=== PATIENT | male | born 1970 | race Caucasian/White ===

== ENCOUNTER → 2018-03-27 07:24 | Outpatient (CLI) | payer BC, SELFPAY ==
[2018-03-27 08:50] LABS: Anion Gap 9.4 mmol/L (3-11); BUN 17 mg/dL (7-18); CO2 27.6 mmol/L (21.0-32.0); CREATININE 0.87 mg/dL (0.70-1.30); Chloride 100 mmol/L (98-107); Cholesterol 176 mg/dL (50-200); Glucose 94 mg/dL (70-100); HDL Cholesterol 55 mg/dL (40-60); LDL CHOLESTEROL 94 mg/dL (<100); Sodium 137 mmol/L (136-145); Triglyceride 120 mg/dL (30-150)
== END ==
PROVIDERS: PCP Internal Medicine; Visit Provider Internal Medicine
DX: I10 Essential (primary) hypertension (principal); E78.00 Pure hypercholesterolemia, unspecified
CPT/HCPCS: 36415; 80048; 80061; 83721

== ENCOUNTER 2019-04-02 16:01 | Outpatient (REF) | payer BC, SELFPAY ==
[2019-04-02 16:52] LABS: Anion Gap 11.2 mmol/L (3-11); BUN 15 mg/dL (7-18); CO2 26.8 mmol/L (21.0-32.0); CREATININE 0.81 mg/dL (0.70-1.30); Calcium 9.5 mg/dL (8.5-10.1); Calculated LDL 105 mg/dL; Chloride 98 mmol/L (98-107); Cholesterol 175 mg/dL (50-200); Glucose 91 mg/dL (70-100); HDL Cholesterol 60 mg/dL (40-60); Potassium 3.9 mmol/L (3.5-5.1); Sodium 136 mmol/L (136-145); Triglyceride 50 mg/dL (30-150)
== END 2019-04-02 16:21 ==
LOC: LBN 16:01
PROVIDERS: PCP Internal Medicine; Visit Provider Internal Medicine
DX: I10 Essential (primary) hypertension (principal)
CPT/HCPCS: 80048; 80061; 83721

== ENCOUNTER 2020-05-06 05:29 | Outpatient (CLI) | payer BC, SELFPAY ==
[2020-05-06 09:26] LABS: Anion Gap 5.4 mmol/L (3-11); BUN 13 mg/dL (7-18); CO2 28.6 mmol/L (21.0-32.0); CREATININE 0.93 mg/dL (0.70-1.30); Calcium 9.1 mg/dL (8.5-10.1); Calculated LDL 107 mg/dL (<100); Chloride 101 mmol/L (98-107); Cholesterol 183 mg/dL (<200); Glucose 93 mg/dL (74-106); HDL Cholesterol 64 mg/dL (40-60); Potassium 4.5 mmol/L (3.5-5.1); Sodium 135 mmol/L (136-145); Triglyceride 63 mg/dL (<150)
== END 2020-05-06 05:49 ==
PROVIDERS: PCP Internal Medicine; Visit Provider Internal Medicine
DX: E78.00 Pure hypercholesterolemia, unspecified (principal); I10 Essential (primary) hypertension; N50.812 Left testicular pain
CPT/HCPCS: 36415; 80048; 80061

== ENCOUNTER 2021-11-30 05:40 | Outpatient (CLI) | payer BC, SELFPAY ==
[2021-11-30 16:49] LABS: Anion Gap 8.1 mmol/L (3-11); BUN 16 mg/dL (7-18); CO2 27.9 mmol/L (21.0-32.0); CREATININE 0.9 mg/dL (0.70-1.30); Calcium 9.6 mg/dL (8.5-10.1); Calculated LDL 118 mg/dL (<100); Chloride 99 mmol/L (98-107); Cholesterol 214 mg/dL (<200); Glucose 91 mg/dL (74-106); HDL Cholesterol 79 mg/dL (40-60); Potassium 3.9 mmol/L (3.5-5.1); Sodium 135 mmol/L (136-145); Triglyceride 87 mg/dL (<150)
== END 2021-11-30 05:41 | disposition home or self-care (01) ==
LOC: LBO 05:40
PROVIDERS: PCP Internal Medicine; Visit Provider Internal Medicine
DX: I10 Essential (primary) hypertension (principal)
CPT/HCPCS: 36415; 80048; 80061

== ENCOUNTER 2022-11-25 01:59 | Outpatient (CLI) | payer BC, SELFPAY ==
[2022-11-25 07:57] LABS: Anion Gap 9.5 mmol/L (3-11); BUN 15 mg/dL (7-18); CO2 28.5 mmol/L (21.0-32.0); CREATININE 0.9 mg/dL (0.70-1.30); Calcium 9.2 mg/dL (8.5-10.1); Calculated LDL 107 mg/dL (<100); Chloride 99 mmol/L (98-107); Cholesterol 192 mg/dL (<200); Glucose 108 mg/dL (74-106); HDL Cholesterol 76 mg/dL (40-60); Sodium 137 mmol/L (136-145); Triglyceride 47 mg/dL (<150)
== END 2022-11-25 02:00 | disposition home or self-care (01) ==
LOC: LBO 01:59
PROVIDERS: PCP Nurse Practitioner Adult Health; Visit Provider Nurse Practitioner Adult Health
DX: I10 Essential (primary) hypertension (principal); Z13.220 Encounter for screening for lipoid disorders
CPT/HCPCS: 36415; 80048; 80061

== ENCOUNTER 2023-06-12 01:02 | Outpatient (CLI) | payer BC, SELFPAY ==
[2023-06-12 07:48] LABS: Anion Gap 10.4 mmol/L (3-11); BUN 15 mg/dL (7-18); CO2 26.6 mmol/L (21.0-32.0); Calcium 9.7 mg/dL (8.5-10.1); Chloride 98 mmol/L (98-107); Estimated GFR 90.56 (mL/min/1.73m2); Glucose 122 mg/dL (74-106); Potassium 4.3 mmol/L (3.5-5.1); Sodium 135 mmol/L (136-145)
[2023-06-12 07:54] LABS: Hemoglobin A1C 5.5 % (<5.7)
== END 2023-06-12 01:03 | disposition home or self-care (01) ==
PROVIDERS: PCP Nurse Practitioner Adult Health; Visit Provider Nurse Practitioner Adult Health
DX: I10 Essential (primary) hypertension (principal); R73.01 Impaired fasting glucose
CPT/HCPCS: 36415; 80048; 83036

== ENCOUNTER 2025-01-09 03:35 | Outpatient (CLI) | payer BC, SELFPAY ==
[2025-01-09 08:14] LABS: Hemoglobin A1C 5.5 % (<5.7)
[2025-01-09 08:27] LABS: Anion Gap 3.9 mmol/L (3-11); BUN 16 mg/dL (7-18); CO2 30.1 mmol/L (21.0-32.0); Calcium 8.9 mg/dL (8.5-10.1); Calculated LDL 83 mg/dL (<100); Chloride 99 mmol/L (98-107); Cholesterol 166 mg/dL (<200); Glucose 103 mg/dL (74-106); HDL Cholesterol 78 mg/dL (>or=40); Sodium 133 mmol/L (136-145); Triglyceride 28 mg/dL (<150)
== END 2025-01-09 03:36 | disposition home or self-care (01) ==
PROVIDERS: PCP Nurse Practitioner Adult Health; Referring Provider Nurse Practitioner Adult Health; Visit Provider Nurse Practitioner Adult Health
DX: I10 Essential (primary) hypertension (principal); R73.01 Impaired fasting glucose
CPT/HCPCS: 36415; 80048; 80061; 83036

== ENCOUNTER 2025-05-20 10:32 | Outpatient (CLI) | payer BC, SELFPAY ==
[2025-05-20 08:00] LABS: Anion Gap 8.5 mmol/L (3-11); BUN 17 mg/dL (7-18); CO2 28.5 mmol/L (21.0-32.0); Calcium 9.1 mg/dL (8.5-10.1); Chloride 99 mmol/L (98-107); Cholesterol 164 mg/dL (<200); Estimated GFR 105.17 (mL/min/1.73m2); Glucose 104 mg/dL (74-106); HDL Cholesterol 80 mg/dL (>or=40); Potassium 4.1 mmol/L (3.5-5.1); Sodium 136 mmol/L (136-145)
[2025-05-20 08:03] LABS: Triglyceride <25 mg/dL (<150)
[2025-05-20 08:18] LABS: LDL CHOLESTEROL 72 mg/dL (<100)
[2025-05-20 09:12] LABS: Hemoglobin A1C 5.5 % (<5.7)
== END 2025-05-20 10:33 | disposition home or self-care (01) ==
LOC: LBO 10:32
PROVIDERS: PCP Nurse Practitioner Adult Health; Visit Provider Nurse Practitioner Adult Health
DX: I10 Essential (primary) hypertension (principal); R73.01 Impaired fasting glucose
CPT/HCPCS: 36415; 80048; 80061; 83721; 83036